=== PATIENT | female | born 1970 | race Asian ===

== ENCOUNTER 2020-09-10 20:46 | Emergency (ER) | payer MEDICAID ==
[~2020-09-10] VITALS: Ht 167.6 cm; Wt 56.7 kg
[2020-09-10 20:54] VITALS: BP_SYST 134
[2020-09-10] MEDS ORDERED: PHENAZOPYRIDINE HCL 100 MG TABLET PO ONE (21:00)
[2020-09-10] MEDS ORDERED: NITROFURANTOIN MONOHYD/M-CRYST 100 MG CAPSULE PO ONE ×2 (21:00→21:04)
[2020-09-10 21:16] VITALS: BP_SYST 134
== END 2020-09-10 21:16 | disposition home or self-care (01) ==
LOC: SED 20:46
DX: N39.0 Urinary tract infection, site not specified (principal)
CPT/HCPCS: 81025; 99283